=== PATIENT | female | born 1990 | race Caucasian/White ===

== ENCOUNTER 2017-01-16 13:27 | Emergency (ER) | payer OTHER ==
[~2017-01-16] VITALS: Ht 160 cm; Wt 89.1 kg
[~2017-01-16 13:27] MED LIST: COMPLETENATE T1 EACH PO; ENDOCET 5-3251 EACH PO; HYDROCHLOROTHIA50 MG PO; IBUPROFEN800 MG PO; INDOCIN50 MG PO; NORCO 5/3251 TABLET PO; PERCOCET 5/31 TABLET PO; VITAFOL-OB+DHA1 EACH PO
[2017-01-16 14:30] LABS: HEMATOCRIT 37.5 % (36.0-46.0); MCH 26.7 PG (29.0-34.0); MCHC 33.9 G/DL (30.0-36.0); MCV 78.8 FL (83-99); MEAN PLAT.VOLUME 9.4 uM^3 (9.5-12.4); PLATELET COUNT 304 K/uL (156-360); RBC DIS.WIDTH-CV 12.1 % (11.8-14.6); RBC DIS.WIDTH-SD 34.5 % (39-53); RED BLOOD COUNT 4.76 M/uL (3.80-5.20); WHITE BLOOD COUNT 5.9 K/uL (4.1-10.2)
[2017-01-16 14:36] LABS: ADD MIUA? YES; BILIRUBIN NEGATIVE; BLOOD LARGE; COLOR YELLOW ((YELLOW)); GLUCOSE (STRIP) NEGATIVE; KETONES 20; LEUKOCYTES NEGATIVE; NITRITE NEGATIVE; PROTEIN (STRIP) NEGATIVE; SPECIFIC GRAVITY 1.015 (1.000-1.030); UROBILINOGEN 0.2 MG/DL (0.2-1.0)
[2017-01-16 14:39] LABS: CHLORIDE 95 mEq/L (99-109); POTASSIUM 3.4 mEq/L (3.7-5.4); SODIUM 133 mEq/L (136-147)
[2017-01-16 14:40] LABS: GLUCOSE 88 mg/dL (70-99)
[2017-01-16 14:42] LABS: ANION GAP 11 MEQ/L (2-14)
[2017-01-16 14:44] LABS: GFR ESTIMATE (CALCULATED) > 59 mL/min/
[2017-01-16 14:45] LABS: UREA NITROGEN (BUN) 10 mg/dL (9-23)
[2017-01-16 14:51] LABS: BACTERIA NONE SEEN /HPF; EPITHELIAL CELLS RARE /HPF; MUCUS NONE SEEN /LPF; RED BLOOD CELLS TNTC /HPF (0-5); UCUL ADDED? NO; WHITE BLOOD CELLS 0-5 /HPF (0-5)
[2017-01-16 15:00] LABS: QUANTITATIVE HCG < 4.0 MIU/ML
[2017-01-16] MEDS ORDERED: CIPRO500 MG PO (19:13)
[2017-01-16 20:01] VITALS: BP 116/82
== END 2017-01-16 20:02 | disposition home or self-care (01) ==
LOC: EME 13:27
DX: N15.9 Renal tubulo-interstitial disease, unspecified (principal); R51 Headache; Z87.440 Personal history of urinary (tract) infections
CPT/HCPCS: 70450; 74177; 80048; 81003; 84702; 85027; 99281; 99284; J0696; J0780; J1885; J7030; J7040; J7050